=== PATIENT | male | born 1955 | race Caucasian/White ===

== ENCOUNTER → 2019-05-28 | Outpatient (CLI) | payer OTHER, MEDICARE ==
[~2019-05-28] MED LIST: DEPAKOTE ER500 MG PO; DILANTIN100 MG PO; DILANTIN30 MG PO; PAXIL CR25 MG PO; PRADAXA150 MG PO; TRAVATAN Z2.5 ML OPHTHALMIC; XANAX 0.5 MG0.5 MG PO
== END ==
LOC: ULTRA 15:56
DX: I82.442 Acute embolism and thrombosis of left tibial vein (principal)

== ENCOUNTER → 2020-03-20 | Outpatient (CLI) | payer OTHER, MEDICARE | LOC: ULTRA 11:06 | DX: M79.672 Pain in left foot (principal); M79.89 Other specified soft tissue disorders ==